=== PATIENT | male | born 1955 | race Caucasian/White ===

== ENCOUNTER 2016-07-29 01:59 | Emergency (ER) | payer OTHER ==
[2016-07-29] MEDS ORDERED: DUONEB 0.5 MG-3 MG/3 ML SOLN IH ONE ×2 (02:24→10:24)
--- NOTE | 2016-07-29 09:40 | Emergency Department Report ---
ED Shortness of Breath HPI - General Chief Complaint: Adult Asthma Stated Complaint: ASTHMA Time Seen by Provider: 07/29/16 09:39 Source: patient Mode of arrival: Ambulatory Limitations: No Limitations - History of Present Illness Initial Comments: Patient complains of wheezing since yesterday. He's had a cystic cough occasionally productive of white sputum. He denies fever or chills. He is running out of his metoprolol but states he's been compliant. He states his sent him to the hospital this morning because he was "coughing too much". He denies chest pain pressure or tightness. He does still smoke. He is requesting prednisone. His wheezing has resolved after a neb. He is also ran out of medicine for his home machine. He states his Qvar is too expensive although he does not admit to noncompliance. Complaint: cough, "asthma attack" -: hour(s) Consistency: intermittent Improves With: nothing Worsens With: nothing Known History Of: asthma Context: recent URI Associated Symptoms: denies other symptoms, cough Treatments Prior to Arrival: none - Related Data Home Oxygen Therapy: No Home Medications Medication Instructions Recorded Confirmed Last Taken Albuterol Sulfate [Albuterol 0.63% 0.83 mg IH DAILY PRN 07/29/16 07/29/16 Unknown NEBS] Beclomethasone Dipropionate [Qvar] 8.7 gm IH DAILY PRN 07/29/16 07/29/16 Unknown Lisinopril [Zestril TAB] 20 mg PO DAILY 07/29/16 07/29/16 Unknown Metoprolol [Lopressor TAB] 25 mg PO BID 07/29/16 07/29/16 Unknown amLODIPine [Norvasc] 10 mg PO DAILY 07/29/16 07/29/16 Unknown Previous Rx's Medication Instructions Recorded Last Taken Type ALBUTEROL Inhaler [ProAir HFA 2 puff IH QID PRN #1 inhalation 07/29/16 Unknown Rx Inhaler] Albuterol Sulfate [Albuterol 0.63% 0.63 mg IH TID PRN #60 ampul 07/29/16 Unknown Rx NEBS] Lisinopril/Hydrochlorothiazide 1 tab PO QDAY #30 tab 07/29/16 Unknown Rx [Zestoretic 20-25 mg] Metoprolol [Lopressor TAB] 25 mg PO BID #60 tablet 07/29/16 Unknown Rx predniSONE [Deltasone] 20 mg PO QDAY #5 tab 07/29/16 Unknown Rx Allergies Allergy/AdvReac Type Severity Reaction Status Date / Time No Known Allergies Allergy Verified 07/29/16 02:15 ED Review of Systems ROS: Stated complaint: ASTHMA Other details as noted in HPI Constitutional: denies: chills, fever Eyes: denies: eye pain, eye discharge, vision change ENT: denies: ear pain, throat pain Respiratory: cough, wheezing. denies: shortness of breath Cardiovascular: denies: chest pain, palpitations Endocrine: no symptoms reported Gastrointestinal: denies: abdominal pain, nausea, diarrhea Genitourinary: denies: urgency, dysuria Musculoskeletal: denies: back pain, joint swelling, arthralgia Skin: denies: rash, lesions Neurological: denies: headache, weakness, paresthesias Psychiatric: denies: anxiety, depression Hematological/Lymphatic: denies: easy bleeding, easy bruising ED Past Medical Hx - Past Medical History Previous Medical History?: Yes Hx Hypertension: Yes Hx Asthma: Yes - Surgical History Past Surgical History?: No - Social History Smoking Status: Current Some Day Smoker Substance Use Type: None - Medications Home Medications: Home Medications Medication Instructions Recorded Confirmed Last Taken Type ALBUTEROL Inhaler [ProAir HFA 2 puff IH QID PRN #1 inhalation 07/29/16 Unknown Rx Inhaler] Albuterol Sulfate [Albuterol 0.63% 0.63 mg IH TID PRN #60 ampul 07/29/16 Unknown Rx NEBS] Albuterol Sulfate [Albuterol 0.63% 0.83 mg IH DAILY PRN 07/29/16 07/29/16 Unknown History NEBS] Beclomethasone Dipropionate [Qvar] 8.7 gm IH DAILY PRN 07/29/16 07/29/16 Unknown History Lisinopril [Zestril TAB] 20 mg PO DAILY 07/29/16 07/29/16 Unknown History Lisinopril/Hydrochlorothiazide 1 tab PO QDAY #30 tab 07/29/16 Unknown Rx [Zestoretic 20-25 mg] Metoprolol [Lopressor TAB] 25 mg PO BID 07/29/16 07/29/16 Unknown History Metoprolol [Lopressor TAB] 25 mg PO BID #60 tablet 07/29/16 Unknown Rx amLODIPine [Norvasc] 10 mg PO DAILY 07/29/16 07/29/16 Unknown History predniSONE [Deltasone] 20 mg PO QDAY #5 tab 07/29/16 Unknown Rx ED Physical Exam - General Limitations: No Limitations General appearance: alert, in no apparent distress - Head Head exam: Present: atraumatic, normocephalic - Eye Eye exam: Present: normal appearance. Absent: scleral icterus - ENT ENT exam: Present: mucous membranes moist - Neck Neck exam: Present: normal inspection - Respiratory Respiratory exam: Present: decreased breath sounds (slightly distant but no wheezes present. Normal work of breathing). Absent: respiratory distress, accessory muscle use, prolonged expiratory - Cardiovascular Cardiovascular Exam: Present: regular rate, normal rhythm. Absent: systolic murmur, diastolic murmur, rubs, gallop - GI/Abdominal GI/Abdominal exam: Present: soft, normal bowel sounds. Absent: distended, tenderness, guarding, rebound, rigid - Rectal Rectal exam: Present: deferred - Extremities Exam Extremities exam: Present: normal inspection - Back Exam Back exam: Present: normal inspection - Neurological Exam Neurological exam: Present: alert, oriented X3, CN II-XII intact. Absent: motor sensory deficit - Psychiatric Psychiatric exam: Present: normal affect, normal mood - Skin Skin exam: Present: warm, dry, intact, normal color. Absent: rash ED Course Vital Signs 07/29/16 07/29/16 07/29/16 02:16 02:32 02:41 Temperature 98.8 F Pulse Rate 100 H Pulse Rate [ 101 H 100 H Throughout] Respiratory 26 H Rate Respiratory 20 20 Rate [ Throughout] Blood Pressure 158/106 O2 Sat by Pulse 100 Oximetry 07/29/16 06:15 Temperature 98.1 F Pulse Rate 108 H Pulse Rate [ Throughout] Respiratory 20 Rate Respiratory Rate [ Throughout] Blood Pressure 195/119 O2 Sat by Pulse 99 Oximetry - Reevaluation(s) Reevaluation #1: Patient's wheezing has resolved. Given one more DuoNeb. I checked with the lab and he had a hemolysis coefficient of 26 out of 100 so there was no significant hemolysis on his specimen. He was found to have a potassium of 5.4. I think it is reasonable to presume that this is secondary to lisinopril. His lisinopril will be changed to lisinopril HCTZ. He is given 1 dose of Kayexalate. He is instructed to follow-up on his potassium. He states he has an appointment with Dr. Ricketts his primary care physician early this week already. I have gone over his discharge plan. 07/29/16 10:30 ED Medical Decision Making - Lab Data Result diagrams: 07/29/16 09:18 07/29/16 09:18 Laboratory Results - last 24 hr 07/29/16 07/29/16 09:18 09:18 WBC 5.0 RBC 4.37 Hgb 11.1 L Hct 34.5 L MCV 79 L MCH 25 L MCHC 32 RDW 17.6 H Plt Count 169 Lymph % (Auto) 6.7 L Cole % (Auto) 10.8 H Eos % (Auto) 1.5 Baso % (Auto) 1.0 Lymph # 0.3 L Cole # 0.5 Eos # 0.1 Baso # 0.0 Seg Neutrophils % 80.0 H Seg Neutrophils # 4.0 Sodium 136 L Potassium 5.4 H Chloride 97.9 L Carbon Dioxide 23 Anion Gap 21 BUN 16 Creatinine 1.4 Estimated GFR 52 BUN/Creatinine Ratio 11.42 Glucose 89 Calcium 9.4 Troponin T < 0.010 - EKG Data -: EKG Interpreted by Me EKG shows normal: sinus rhythm Rate: normal - EKG Data Interpretation: LVH, other (LVH with associated repolarization abnormality is noted per EKG criteria) - Radiology Data Radiology results: report reviewed interpreted by me: Negative per Radiologist. I think consistent with COPD. There is no evidence of kira cardiomegaly. Critical care attestation.: If time is entered above; I have spent that time in minutes in the direct care of this critically ill patient, excluding procedure time. ED Disposition Clinical Impression: Acute exacerbation of COPD with asthma, Poorly-controlled hypertension, Hyperkalemia Disposition: DISCHARGED TO HOME OR SELFCARE Is pt being admited?: No Does the pt Need Aspirin: No Condition: Stable Instructions: Asthma (ED), Chronic Obstructive Pulmonary Disease (ED), Hypertension (ED), Hyperkalemia (ED), How to Stop Smoking (ED) Additional Instructions: You were given a medicine to reduce her potassium in your body. This will cause some diarrhea today but that should go away by tomorrow. We are going to change her lisinopril to lisinopril plus a diuretic as we have discussed. There is full give you a copy of your blood tests. Your potassium will need to be checked by your family physician this week. Return to the emergency department any acute change or problem. Rx as directed. Prescriptions: ALBUTEROL Inhaler [ProAir HFA Inhaler] 2 puff IH QID PRN #1 inhalation PRN Reason: Shortness Of Breath Albuterol Sulfate [Albuterol 0.63% NEBS] 0.63 mg IH TID PRN #60 ampul PRN Reason: Wheezing Lisinopril/Hydrochlorothiazide [Zestoretic 20-25 mg] 1 tab PO QDAY #30 tab Metoprolol [Lopressor TAB] 25 mg PO BID #60 tablet predniSONE [Deltasone] 20 mg PO QDAY #5 tab Referrals: PRIMARY CARE, [Primary Care Provider] - 3-5 Days Time of Disposition: 10:41
[2016-07-29 09:51] LABS: Anion Gap 21 mmol/L; BUN/Creatinine Ratio 11.42; Blood Urea Nitrogen 16 mg/dL (9-20); Calcium 9.4 mg/dL (8.4-10.2); Carbon Dioxide 23 mmol/L (22-30); Chloride 97.9 mmol/L (98-107); Eosinophils % (Auto) 1.5 % (0.0-4.3); Glucose 89 mg/dL (75-100); Hematocrit 34.5 % (35.5-45.6); Hemoglobin 11.1 gm/dl (11.8-15.2); Mean Corpuscular HGB Conc 32 % (32-34); Mean Corpuscular Volume 79 fl (84-94); Platelet Count 169 K/mm3 (140-440); Potassium 5.4 mmol/L (3.6-5.0); Red Blood Count 4.37 M/mm3 (3.65-5.03); Red Cell Distribution Width 17.6 % (13.2-15.2); Sodium 136 mmol/L (137-145)
[2016-07-29 09:54] LABS: Mean Corpuscular Hemoglobin 25 pg (28-32)
[2016-07-29] MEDS ORDERED: CATAPRES PO ONE (10:17)
[2016-07-29] MEDS ORDERED: DELTASONE PO ONE (10:17)
[2016-07-29] MEDS ORDERED: TESSALON PERLES PO ONE (10:17)
[2016-07-29] MEDS ORDERED: KIONEX PO ONE (10:25)
--- NOTE | 2016-07-29 10:39 | XRay Report ---
CHEST TWO VIEWS: 07/29/16 01:59:00 CLINICAL: Shortness of breath. COMPARISON: None FINDINGS: The heart is borderline large with a left ventricular contour. Normal pulmonary vessels. The lungs are normally expanded and clear. The bones and soft tissues are normal. IMPRESSION: Borderline cardiomegaly but no CHF.No pneumonia.
[2016-07-29 11:18] VITALS: BP 189/104
== END 2016-07-29 11:36 | disposition home or self-care (01) ==
LOC: ED 01:59
DX: J44.1 Chronic obstructive pulmonary disease with (acute) exacerbation (principal); E87.5 Hyperkalemia; I10 Essential (primary) hypertension; F17.200 Nicotine dependence, unspecified, uncomplicated
CPT/HCPCS: 36415; 71020; 80048; 84484; 85025; 93005; 93010; 94640; 99284; J7512